=== PATIENT | female | born 1960 | race Caucasian/White ===

== ENCOUNTER 2017-04-23 14:01 | Emergency (ER) | payer OTHER ==
[~2017-04-23 14:01] MED LIST: AMIT25 PO; DURICEF PO; EFFIENT10 PO; FLORASTOR250 MG PO; HALF81 PO; LIPITOR80 MG PO; NEUR300 PO; NICODERM C14 MG/24 H TOP; OXYCOD PO; PROTONIX PO; PROVHFA INH; SOMATAB PO; TEARS PURE OPH; TOPXL25 PO
== END 2017-04-23 14:39 | disposition home or self-care (01) ==
LOC: ER 14:01
DX: K08.89 Other specified disorders of teeth and supporting structures (principal); I25.2 Old myocardial infarction; Z98.61 Coronary angioplasty status; F17.200 Nicotine dependence, unspecified, uncomplicated; Z79.82 Long term (current) use of aspirin; Z79.899 Other long term (current) drug therapy
CPT/HCPCS: 99282